=== PATIENT | female | born 1935 | race Caucasian/White ===

== ENCOUNTER 2021-07-26 14:31 | Inpatient (IN) ==
[2021-07-26] MEDS ORDERED: D5% in Water 1,000 ML IVC PRN (16:33)
[2021-07-26] MEDS ORDERED: *HR* Dextrose 50 % in Water (Syg) 50 ML SYRINGE IVP PRN (16:33)
[2021-07-26] MEDS ORDERED: Dextrose Gel 15 GM/37.5 ML TUBE PO PRN ×2 (16:33)
[2021-07-27] MEDS: *HR* LORazepam 1 MG TABLET PO PRN ×2 (02:02→20:51)
[2021-07-27] MEDS: *HR* Enoxaparin 40 MG/0.4 ML SYRINGE SQ SCH (06:51)
[2021-07-27 10:08] LABS: Basophils # 0.1 K/mcL (0.0-0.2); Basophils % 0.8 %; Eosinophils # 0.2 K/mcL (0.0-0.6); Eosinophils % 3.8 %; Hematocrit 27.9 % (35.3-44.9); Immature Granulocytes % 1.1 % (0-4); Lymphocytes % 15.6 %; Mean Corpuscular HGB Conc 32.3 g/dL (31.6-35.5); Mean Corpuscular Hemoglobin 31.6 pg (28.0-33.3); Mean Corpuscular Volume 97.9 fL (83.0-100.0); Mean Platelet Volume 10.2 fL (9.4-12.4); Monocytes # 0.7 K/mcL (0.0-1.3); Monocytes % 10.3 %; Neutrophils # 4.4 K/mcL (1.6-8.9); Platelet Count 240 K/mcL (140-400); Red Blood Count 2.85 M/mcL (3.82-4.97); Red Cell Distribution Width 15.5 % (11.5-14.5); Segmented Neutrophils % 68.4 %; White Blood Count 6.4 K/mcL (4.3-11.1)
[2021-07-27 10:18] LABS: BUN/Creatinine Ratio 21 (6-26); Blood Urea Nitrogen 19 mg/dL (8-23); Calcium 8.5 mg/dL (8.6-10.3); Carbon Dioxide 27 mEq/L (23-29); Chloride 104 mEq/L (98-107); Glucose 95 mg/dL (70-105); Osmolality,Calculated 286 (280-300); Potassium 4.3 mEq/L (3.5-5.1); Sodium 137 mEq/L (136-145); eGFR For African Americans > 60 (> 60); eGFR For Non-African Americans 60 (> 60)
[2021-07-27] MEDS: Cholecalciferol (D-3) 1,000 UNIT (25MCG) TABLET PO SCH (10:47)
[2021-07-27] MEDS: Multivit/Ca/Min/Fe/FA 1 TAB TABLET PO SCH (10:47)
[2021-07-27] MEDS: amLODIPine 5 MG TABLET PO SCH (10:47)
[2021-07-27] MEDS: *HR* Metformin 500 MG TABLET PO SCH (10:47)
[2021-07-27] MEDS: Aspirin 81 MG TAB.CHEW PO SCH (10:47)
[2021-07-27] MEDS: Metoprolol XL (24 HR) Succ 25 MG TAB.ER.24H PO SCH (10:47)
[2021-07-27] MEDS ORDERED: Fluconazole 100 MG TABLET PO SCH (21:30)
[2021-07-28] MEDS: Nystatin Cream 15 GM TUBE TP SCH ×3 (00:22→20:04)
[2021-07-28] MEDS: *HR* Enoxaparin 40 MG/0.4 ML SYRINGE SQ SCH (08:32)
[2021-07-28] MEDS: *HR* LORazepam 1 MG TABLET PO PRN (08:33)
[2021-07-28] MEDS: Multivit/Ca/Min/Fe/FA 1 TAB TABLET PO SCH (08:33)
[2021-07-28] MEDS: Metoprolol XL (24 HR) Succ 25 MG TAB.ER.24H PO SCH (08:33)
[2021-07-28] MEDS: Aspirin 81 MG TAB.CHEW PO SCH (08:33)
[2021-07-28] MEDS: Cholecalciferol (D-3) 1,000 UNIT (25MCG) TABLET PO SCH (08:33)
[2021-07-28] MEDS: *HR* Metformin 500 MG TABLET PO SCH (08:33)
[2021-07-28] MEDS: amLODIPine 5 MG TABLET PO SCH (08:33)
[2021-07-29] MEDS: *HR* LORazepam 1 MG TABLET PO PRN (03:35)
[2021-07-29] MEDS: *HR* Enoxaparin 30 MG/0.3 ML SYRINGE SQ SCH (06:08)
[2021-07-29] MEDS: Cholecalciferol (D-3) 1,000 UNIT (25MCG) TABLET PO SCH (08:40)
[2021-07-29] MEDS: amLODIPine 5 MG TABLET PO SCH (08:41)
[2021-07-29] MEDS: Metoprolol XL (24 HR) Succ 25 MG TAB.ER.24H PO SCH (08:41)
[2021-07-29] MEDS: Multivit/Ca/Min/Fe/FA 1 TAB TABLET PO SCH (08:41)
[2021-07-29] MEDS: *HR* Metformin 500 MG TABLET PO SCH (08:41)
[2021-07-29] MEDS: Aspirin 81 MG TAB.CHEW PO SCH (08:41)
[2021-07-29] MEDS: Nystatin Cream 15 GM TUBE TP SCH ×2 (08:44→20:16)
[2021-07-29] MEDS: Acetaminophen 325 MG TABLET PO PRN (22:35)
[2021-07-30] MEDS: *HR* Enoxaparin 30 MG/0.3 ML SYRINGE SQ SCH (06:20)
[2021-07-30] MEDS: Acetaminophen 325 MG TABLET PO PRN ×2 (08:27→20:44)
[2021-07-30] MEDS: Aspirin 81 MG TAB.CHEW PO SCH (08:27)
[2021-07-30] MEDS: Multivit/Ca/Min/Fe/FA 1 TAB TABLET PO SCH (08:27)
[2021-07-30] MEDS: amLODIPine 5 MG TABLET PO SCH (08:27)
[2021-07-30] MEDS: *HR* Metformin 500 MG TABLET PO SCH (08:27)
[2021-07-30] MEDS: Cholecalciferol (D-3) 1,000 UNIT (25MCG) TABLET PO SCH (08:27)
[2021-07-30] MEDS: Nystatin Cream 15 GM TUBE TP SCH ×2 (08:29→20:00)
[2021-07-30] MEDS: Metoprolol XL (24 HR) Succ 25 MG TAB.ER.24H PO SCH (08:38)
[2021-07-31] MEDS: Acetaminophen 325 MG TABLET PO PRN ×2 (03:17→19:52)
[2021-07-31] MEDS: *HR* Enoxaparin 30 MG/0.3 ML SYRINGE SQ SCH (08:26)
[2021-07-31] MEDS: Aspirin 81 MG TAB.CHEW PO SCH (08:27)
[2021-07-31] MEDS: Metoprolol XL (24 HR) Succ 25 MG TAB.ER.24H PO SCH ×2 (08:27→08:30)
[2021-07-31] MEDS: Multivit/Ca/Min/Fe/FA 1 TAB TABLET PO SCH (08:27)
[2021-07-31] MEDS: *HR* Metformin 500 MG TABLET PO SCH (08:27)
[2021-07-31] MEDS: Nystatin Cream 15 GM TUBE TP SCH ×2 (08:27→20:49)
[2021-07-31] MEDS: amLODIPine 5 MG TABLET PO SCH (08:27)
[2021-07-31] MEDS: Cholecalciferol (D-3) 1,000 UNIT (25MCG) TABLET PO SCH (08:27)
[2021-08-01] MEDS: Aspirin 81 MG TAB.CHEW PO SCH (08:17)
[2021-08-01] MEDS: *HR* Enoxaparin 30 MG/0.3 ML SYRINGE SQ SCH (08:17)
[2021-08-01] MEDS: *HR* Metformin 500 MG TABLET PO SCH (08:17)
[2021-08-01] MEDS: Cholecalciferol (D-3) 1,000 UNIT (25MCG) TABLET PO SCH (08:17)
[2021-08-01] MEDS: Metoprolol XL (24 HR) Succ 25 MG TAB.ER.24H PO SCH (08:17)
[2021-08-01] MEDS: amLODIPine 5 MG TABLET PO SCH (08:17)
[2021-08-01] MEDS: Multivit/Ca/Min/Fe/FA 1 TAB TABLET PO SCH (08:17)
[2021-08-01] MEDS: Nystatin Cream 15 GM TUBE TP SCH ×2 (08:18→20:53)
[2021-08-01] MEDS: Acetaminophen 325 MG TABLET PO PRN (20:52)
[2021-08-02] MEDS: *HR* Enoxaparin 30 MG/0.3 ML SYRINGE SQ SCH (06:10)
[2021-08-02] MEDS: amLODIPine 5 MG TABLET PO SCH (08:32)
[2021-08-02] MEDS: Aspirin 81 MG TAB.CHEW PO SCH (08:32)
[2021-08-02] MEDS: Metoprolol XL (24 HR) Succ 25 MG TAB.ER.24H PO SCH (08:32)
[2021-08-02] MEDS: Multivit/Ca/Min/Fe/FA 1 TAB TABLET PO SCH (08:32)
[2021-08-02] MEDS: *HR* Metformin 500 MG TABLET PO SCH (08:32)
[2021-08-02] MEDS: Nystatin Cream 15 GM TUBE TP SCH ×2 (08:33→20:03)
[2021-08-02] MEDS: Cholecalciferol (D-3) 1,000 UNIT (25MCG) TABLET PO SCH (08:33)
[2021-08-02 12:32] LABS: Basophils # 0.1 K/mcL (0.0-0.2); Basophils % 0.7 %; Eosinophils # 0.1 K/mcL (0.0-0.6); Eosinophils % 1.2 %; Hematocrit 31.9 % (35.3-44.9); Hemoglobin 9.9 g/dL (11.5-15.4); Immature Granulocytes % 0.3 % (0-4); Lymphocytes # 0.8 K/mcL (0.6-4.6); Lymphocytes % 8.5 %; Mean Corpuscular Hemoglobin 31.2 pg (28.0-33.3); Mean Corpuscular Volume 100.6 fL (83.0-100.0); Mean Platelet Volume 9.2 fL (9.4-12.4); Monocytes # 0.8 K/mcL (0.0-1.3); Neutrophils # 7.3 K/mcL (1.6-8.9); Platelet Count 227 K/mcL (140-400); Red Blood Count 3.17 M/mcL (3.82-4.97); Red Cell Distribution Width 17.8 % (11.5-14.5); Segmented Neutrophils % 80.3 %; White Blood Count 9.1 K/mcL (4.3-11.1)
[2021-08-02 12:46] LABS: BUN/Creatinine Ratio 28 (6-26); Blood Urea Nitrogen 28 mg/dL (8-23); Calcium 8.9 mg/dL (8.6-10.3); Carbon Dioxide 26 mEq/L (23-29); Chloride 104 mEq/L (98-107); Glucose 108 mg/dL (70-105); Magnesium 1.9 mg/dL (1.6-2.6); Osmolality,Calculated 290 (280-300); Potassium 4.7 mEq/L (3.5-5.1); Sodium 137 mEq/L (136-145); eGFR For African Americans > 60 (> 60); eGFR For Non-African Americans 52 (> 60)
[2021-08-02] MEDS: Acetaminophen 325 MG TABLET PO PRN (20:02)
[2021-08-03] MEDS: *HR* Enoxaparin 30 MG/0.3 ML SYRINGE SQ SCH (06:38)
[2021-08-03] MEDS: *HR* Metformin 500 MG TABLET PO SCH (08:17)
[2021-08-03] MEDS: Aspirin 81 MG TAB.CHEW PO SCH (08:17)
[2021-08-03] MEDS: amLODIPine 5 MG TABLET PO SCH (08:18)
[2021-08-03] MEDS: Multivit/Ca/Min/Fe/FA 1 TAB TABLET PO SCH (08:18)
[2021-08-03] MEDS: Nystatin Cream 15 GM TUBE TP SCH ×2 (08:18→20:11)
[2021-08-03] MEDS: Cholecalciferol (D-3) 1,000 UNIT (25MCG) TABLET PO SCH (08:18)
[2021-08-03] MEDS: Metoprolol XL (24 HR) Succ 25 MG TAB.ER.24H PO SCH (08:25)
[2021-08-03] MEDS: Acetaminophen 325 MG TABLET PO PRN (20:11)
[2021-08-04] MEDS: *HR* Enoxaparin 30 MG/0.3 ML SYRINGE SQ SCH (06:55)
[2021-08-04] MEDS: Aspirin 81 MG TAB.CHEW PO SCH (09:03)
[2021-08-04] MEDS: Multivit/Ca/Min/Fe/FA 1 TAB TABLET PO SCH (09:03)
[2021-08-04] MEDS: Cholecalciferol (D-3) 1,000 UNIT (25MCG) TABLET PO SCH (09:04)
[2021-08-04] MEDS: Nystatin Cream 15 GM TUBE TP SCH (09:06)
[2021-08-04] MEDS: amLODIPine 5 MG TABLET PO SCH (09:11)
[2021-08-04] MEDS: *HR* Metformin 500 MG TABLET PO SCH (09:11)
[2021-08-04] MEDS: Metoprolol XL (24 HR) Succ 25 MG TAB.ER.24H PO SCH (09:12)
[2021-08-04] MEDS: Acetaminophen 325 MG TABLET PO PRN (20:44)
[2021-08-04] MEDS: Nystatin POWDER 30 GM BOTTLE TP SCH (20:45)
[2021-08-05] MEDS: Metoprolol XL (24 HR) Succ 25 MG TAB.ER.24H PO SCH (08:03)
[2021-08-05] MEDS: *HR* Metformin 500 MG TABLET PO SCH (08:03)
[2021-08-05] MEDS: Aspirin 81 MG TAB.CHEW PO SCH (08:03)
[2021-08-05] MEDS: Acetaminophen 325 MG TABLET PO PRN ×3 (08:05→20:25)
[2021-08-05] MEDS: Cholecalciferol (D-3) 1,000 UNIT (25MCG) TABLET PO SCH (08:05)
[2021-08-05] MEDS: *HR* Enoxaparin 30 MG/0.3 ML SYRINGE SQ SCH (08:05)
[2021-08-05] MEDS: Multivit/Ca/Min/Fe/FA 1 TAB TABLET PO SCH (08:05)
[2021-08-05] MEDS: amLODIPine 5 MG TABLET PO SCH (08:06)
[2021-08-05] MEDS: Nystatin POWDER 30 GM BOTTLE TP SCH ×3 (08:06→21:11)
[2021-08-06] MEDS: Cholecalciferol (D-3) 1,000 UNIT (25MCG) TABLET PO SCH (07:56)
[2021-08-06] MEDS: *HR* Metformin 500 MG TABLET PO SCH (07:56)
[2021-08-06] MEDS: *HR* Enoxaparin 30 MG/0.3 ML SYRINGE SQ SCH (07:56)
[2021-08-06] MEDS: Aspirin 81 MG TAB.CHEW PO SCH (07:56)
[2021-08-06] MEDS: Multivit/Ca/Min/Fe/FA 1 TAB TABLET PO SCH (07:56)
[2021-08-06] MEDS: amLODIPine 5 MG TABLET PO SCH (07:56)
[2021-08-06] MEDS: Metoprolol XL (24 HR) Succ 25 MG TAB.ER.24H PO SCH (07:57)
[2021-08-06] MEDS: Nystatin POWDER 30 GM BOTTLE TP SCH ×3 (07:57→21:45)
[2021-08-06] MEDS: Sennosides/Docusate Sodium TABLET PO SCH ×2 (15:56→21:45)
[2021-08-06] MEDS: Acetaminophen 325 MG TABLET PO PRN (15:56)
[2021-08-07] MEDS: *HR* Enoxaparin 30 MG/0.3 ML SYRINGE SQ SCH (06:40)
[2021-08-07] MEDS ORDERED: Fluconazole 150 MG TABLET PO ONE (08:15)
[2021-08-07] MEDS: *HR* Metformin 500 MG TABLET PO SCH (08:21)
[2021-08-07] MEDS: *HR* LORazepam 1 MG TABLET PO PRN (08:21)
[2021-08-07] MEDS: Multivit/Ca/Min/Fe/FA 1 TAB TABLET PO SCH (08:21)
[2021-08-07] MEDS: Cholecalciferol (D-3) 1,000 UNIT (25MCG) TABLET PO SCH (08:21)
[2021-08-07] MEDS: Aspirin 81 MG TAB.CHEW PO SCH (08:21)
[2021-08-07] MEDS: Sennosides/Docusate Sodium TABLET PO SCH ×2 (08:21→20:21)
[2021-08-07] MEDS: amLODIPine 5 MG TABLET PO SCH (08:21)
[2021-08-07] MEDS: Metoprolol XL (24 HR) Succ 25 MG TAB.ER.24H PO SCH (08:23)
[2021-08-07] MEDS: Nystatin POWDER 30 GM BOTTLE TP SCH ×3 (08:25→20:23)
[2021-08-08] MEDS: *HR* Enoxaparin 30 MG/0.3 ML SYRINGE SQ SCH (06:33)
[2021-08-08] MEDS: Multivit/Ca/Min/Fe/FA 1 TAB TABLET PO SCH (09:02)
[2021-08-08] MEDS: Metoprolol XL (24 HR) Succ 25 MG TAB.ER.24H PO SCH (09:03)
[2021-08-08] MEDS: *HR* Metformin 500 MG TABLET PO SCH (09:03)
[2021-08-08] MEDS: Sennosides/Docusate Sodium TABLET PO SCH ×2 (09:03→21:58)
[2021-08-08] MEDS: Aspirin 81 MG TAB.CHEW PO SCH (09:03)
[2021-08-08] MEDS: Cholecalciferol (D-3) 1,000 UNIT (25MCG) TABLET PO SCH (09:03)
[2021-08-08] MEDS: amLODIPine 5 MG TABLET PO SCH (09:03)
[2021-08-08 09:34] LABS: Bilirubin,Urine Negative (Negative); Blood,Urine Negative (Negative); Clarity,Urine Clear (Clear); Color,Urine Yellow (Yellow); Glucose,Urine (UA) Normal (Normal); Ketones,Urine Trace mg/dL (Negative); Leukocyte Esterase,Urine Negative (Negative); Nitrite,Urine Negative (Negative); PH,Urine 5.5 pH Units (5.0-8.0); Protein,Urine Negative (Neg-Trace); Urobilinogen,Urine Normal (Normal)
[2021-08-08 11:23] LABS: Basophils % 0.6 %; Eosinophils # 0.1 K/mcL (0.0-0.6); Eosinophils % 2.2 %; Hemoglobin 9.5 g/dL (11.5-15.4); Immature Granulocytes % 0.6 % (0-4); Lymphocytes % 15.7 %; Mean Corpuscular HGB Conc 31.7 g/dL (31.6-35.5); Mean Corpuscular Hemoglobin 31.1 pg (28.0-33.3); Mean Corpuscular Volume 98.4 fL (83.0-100.0); Mean Platelet Volume 8.9 fL (9.4-12.4); Monocytes # 0.7 K/mcL (0.0-1.3); Monocytes % 11.3 %; Neutrophils # 4.4 K/mcL (1.6-8.9); Platelet Count 260 K/mcL (140-400); Red Blood Count 3.05 M/mcL (3.82-4.97); Red Cell Distribution Width 17.5 % (11.5-14.5); Segmented Neutrophils % 69.6 %; White Blood Count 6.4 K/mcL (4.3-11.1)
[2021-08-08 11:28] LABS: VBG Chloride 99 mEq/L (98-107)
[2021-08-08 11:40] LABS: BUN/Creatinine Ratio 21 (6-26); Blood Urea Nitrogen 18 mg/dL (8-23); Calcium 8.5 mg/dL (8.6-10.3); Carbon Dioxide 27 mEq/L (23-29); Glucose 113 mg/dL (70-105); eGFR For African Americans > 60 (> 60); eGFR For Non-African Americans > 60 (> 60)
[2021-08-08] MEDS: Nystatin POWDER 30 GM BOTTLE TP SCH ×3 (12:05→21:58)
[2021-08-08] MEDS ORDERED: Preparation H Ointment 57 GM TUBE TP PRN (15:21)
[2021-08-08] MEDS ORDERED: Hydrocortisone Rectal 2.5% CRM 28 GM TUBE RC PRN (15:21)
[2021-08-08] MEDS ORDERED: Estrogens, Conjugated CREAM 30 GM TUBE VG ONE (15:31)
[2021-08-08] MEDS: *HR* LORazepam 1 MG TABLET PO PRN (15:54)
[2021-08-09] MEDS: *HR* LORazepam 1 MG TABLET PO PRN ×2 (01:09→03:36)
[2021-08-09] MEDS: Sennosides/Docusate Sodium TABLET PO SCH ×2 (08:09→20:16)
[2021-08-09] MEDS: Nystatin POWDER 30 GM BOTTLE TP SCH ×3 (08:10→20:16)
[2021-08-09] MEDS: amLODIPine 5 MG TABLET PO SCH (08:10)
[2021-08-09] MEDS: Aspirin 81 MG TAB.CHEW PO SCH (08:10)
[2021-08-09] MEDS: Multivit/Ca/Min/Fe/FA 1 TAB TABLET PO SCH (08:10)
[2021-08-09] MEDS: *HR* Metformin 500 MG TABLET PO SCH (08:11)
[2021-08-09] MEDS: Cholecalciferol (D-3) 1,000 UNIT (25MCG) TABLET PO SCH (08:11)
[2021-08-09] MEDS: *HR* Enoxaparin 30 MG/0.3 ML SYRINGE SQ SCH (08:12)
[2021-08-09] MEDS: Metoprolol XL (24 HR) Succ 25 MG TAB.ER.24H PO SCH (08:15)
[2021-08-09] MEDS: Acetaminophen 325 MG TABLET PO PRN (20:16)
[2021-08-10] MEDS: Acetaminophen 325 MG TABLET PO PRN ×2 (04:29→21:20)
[2021-08-10] MEDS: *HR* Enoxaparin 30 MG/0.3 ML SYRINGE SQ SCH (07:28)
[2021-08-10] MEDS: Sennosides/Docusate Sodium TABLET PO SCH ×2 (07:28→21:20)
[2021-08-10] MEDS: Multivit/Ca/Min/Fe/FA 1 TAB TABLET PO SCH (07:28)
[2021-08-10] MEDS: *HR* Metformin 500 MG TABLET PO SCH (07:29)
[2021-08-10] MEDS: Aspirin 81 MG TAB.CHEW PO SCH (07:29)
[2021-08-10] MEDS: Metoprolol XL (24 HR) Succ 25 MG TAB.ER.24H PO SCH (07:29)
[2021-08-10] MEDS: Cholecalciferol (D-3) 1,000 UNIT (25MCG) TABLET PO SCH (07:29)
[2021-08-10] MEDS: amLODIPine 5 MG TABLET PO SCH (07:29)
[2021-08-10] MEDS: Nystatin POWDER 30 GM BOTTLE TP SCH ×3 (07:30→21:23)
[2021-08-11] MEDS: Acetaminophen 325 MG TABLET PO PRN ×2 (09:03→21:17)
[2021-08-11] MEDS: Aspirin 81 MG TAB.CHEW PO SCH (09:03)
[2021-08-11] MEDS: Multivit/Ca/Min/Fe/FA 1 TAB TABLET PO SCH (09:03)
[2021-08-11] MEDS: Cholecalciferol (D-3) 1,000 UNIT (25MCG) TABLET PO SCH (09:03)
[2021-08-11] MEDS: Sennosides/Docusate Sodium TABLET PO SCH ×2 (09:03→21:15)
[2021-08-11] MEDS: amLODIPine 5 MG TABLET PO SCH (09:04)
[2021-08-11] MEDS: *HR* Metformin 500 MG TABLET PO SCH (09:04)
[2021-08-11] MEDS: *HR* Enoxaparin 30 MG/0.3 ML SYRINGE SQ SCH (09:05)
[2021-08-11] MEDS: Metoprolol XL (24 HR) Succ 25 MG TAB.ER.24H PO SCH (09:06)
[2021-08-11] MEDS: Nystatin POWDER 30 GM BOTTLE TP SCH ×3 (09:06→21:15)
[2021-08-12] MEDS: *HR* Enoxaparin 30 MG/0.3 ML SYRINGE SQ SCH (06:30)
[2021-08-12] MEDS: *HR* Metformin 500 MG TABLET PO SCH (09:42)
[2021-08-12] MEDS: Aspirin 81 MG TAB.CHEW PO SCH (09:42)
[2021-08-12] MEDS: Multivit/Ca/Min/Fe/FA 1 TAB TABLET PO SCH (09:43)
[2021-08-12] MEDS: amLODIPine 5 MG TABLET PO SCH (09:44)
[2021-08-12] MEDS: Metoprolol XL (24 HR) Succ 25 MG TAB.ER.24H PO SCH (09:45)
[2021-08-12] MEDS: Sennosides/Docusate Sodium TABLET PO SCH ×2 (09:45→21:03)
[2021-08-12] MEDS: Cholecalciferol (D-3) 1,000 UNIT (25MCG) TABLET PO SCH (09:45)
[2021-08-12] MEDS: Nystatin POWDER 30 GM BOTTLE TP SCH ×3 (09:46→21:04)
[2021-08-12] MEDS: Acetaminophen 325 MG TABLET PO PRN (21:07)
[2021-08-13] MEDS: *HR* Enoxaparin 30 MG/0.3 ML SYRINGE SQ SCH (06:48)
[2021-08-13] MEDS: Multivit/Ca/Min/Fe/FA 1 TAB TABLET PO SCH (08:03)
[2021-08-13] MEDS: *HR* Metformin 500 MG TABLET PO SCH (08:04)
[2021-08-13] MEDS: Aspirin 81 MG TAB.CHEW PO SCH (08:05)
[2021-08-13] MEDS: Sennosides/Docusate Sodium TABLET PO SCH ×2 (08:05→19:52)
[2021-08-13] MEDS: amLODIPine 5 MG TABLET PO SCH (08:06)
[2021-08-13] MEDS: Cholecalciferol (D-3) 1,000 UNIT (25MCG) TABLET PO SCH (08:07)
[2021-08-13] MEDS: Metoprolol XL (24 HR) Succ 25 MG TAB.ER.24H PO SCH (08:07)
[2021-08-13] MEDS: Nystatin POWDER 30 GM BOTTLE TP SCH ×3 (08:08→19:53)
[2021-08-13] MEDS: Acetaminophen 325 MG TABLET PO PRN (18:24)
[2021-08-14] MEDS: *HR* Enoxaparin 30 MG/0.3 ML SYRINGE SQ SCH (05:07)
[2021-08-14] MEDS: Sennosides/Docusate Sodium TABLET PO SCH ×2 (07:35→19:55)
[2021-08-14] MEDS: *HR* Metformin 500 MG TABLET PO SCH (07:36)
[2021-08-14] MEDS: Cholecalciferol (D-3) 1,000 UNIT (25MCG) TABLET PO SCH (07:36)
[2021-08-14] MEDS: Aspirin 81 MG TAB.CHEW PO SCH (07:36)
[2021-08-14] MEDS: amLODIPine 5 MG TABLET PO SCH (07:37)
[2021-08-14] MEDS: Multivit/Ca/Min/Fe/FA 1 TAB TABLET PO SCH (07:38)
[2021-08-14] MEDS: Metoprolol XL (24 HR) Succ 25 MG TAB.ER.24H PO SCH (07:38)
[2021-08-14] MEDS: Nystatin POWDER 30 GM BOTTLE TP SCH ×3 (07:40→19:56)
[2021-08-14] MEDS: Acetaminophen 325 MG TABLET PO PRN ×2 (13:41→19:55)
[2021-08-14] MEDS: Nystatin Cream 15 GM TUBE TP SCH (20:49)
[2021-08-15] MEDS: *HR* Enoxaparin 30 MG/0.3 ML SYRINGE SQ SCH (05:58)
[2021-08-15 08:21] LABS: Hematocrit 32.6 % (35.3-44.9); Hemoglobin 10.4 g/dL (11.5-15.4); Mean Corpuscular HGB Conc 31.9 g/dL (31.6-35.5); Mean Corpuscular Hemoglobin 31.3 pg (28.0-33.3); Mean Corpuscular Volume 98.2 fL (83.0-100.0); Mean Platelet Volume 8.8 fL (9.4-12.4); Platelet Count 237 K/mcL (140-400); Red Blood Count 3.32 M/mcL (3.82-4.97); Red Cell Distribution Width 16.2 % (11.5-14.5); White Blood Count 5.7 K/mcL (4.3-11.1)
[2021-08-15] MEDS: Sennosides/Docusate Sodium TABLET PO SCH ×2 (08:32→21:06)
[2021-08-15] MEDS: Aspirin 81 MG TAB.CHEW PO SCH (08:33)
[2021-08-15] MEDS: amLODIPine 5 MG TABLET PO SCH (08:33)
[2021-08-15] MEDS: *HR* Metformin 500 MG TABLET PO SCH (08:34)
[2021-08-15] MEDS: Multivit/Ca/Min/Fe/FA 1 TAB TABLET PO SCH (08:34)
[2021-08-15] MEDS: Cholecalciferol (D-3) 1,000 UNIT (25MCG) TABLET PO SCH (08:35)
[2021-08-15] MEDS: Metoprolol XL (24 HR) Succ 25 MG TAB.ER.24H PO SCH (08:35)
[2021-08-15] MEDS: Nystatin Cream 15 GM TUBE TP SCH ×2 (08:36→21:08)
[2021-08-15] MEDS: Nystatin POWDER 30 GM BOTTLE TP SCH ×3 (08:36→21:07)
[2021-08-15 08:42] LABS: BUN/Creatinine Ratio 17 (6-26); Blood Urea Nitrogen 12 mg/dL (8-23); Calcium 8.3 mg/dL (8.6-10.3); Carbon Dioxide 30 mEq/L (23-29); Chloride 101 mEq/L (98-107); Glucose 88 mg/dL (70-105); Osmolality,Calculated 283 (280-300); Potassium 3.8 mEq/L (3.5-5.1); Sodium 137 mEq/L (136-145); eGFR For African Americans > 60 (> 60); eGFR For Non-African Americans > 60 (> 60)
[2021-08-15] MEDS: Acetaminophen 325 MG TABLET PO PRN (21:07)
[2021-08-16] MEDS: *HR* Enoxaparin 40 MG/0.4 ML SYRINGE SQ SCH (06:14)
[2021-08-16] MEDS: Multivit/Ca/Min/Fe/FA 1 TAB TABLET PO SCH (09:36)
[2021-08-16] MEDS: Sennosides/Docusate Sodium TABLET PO SCH ×2 (09:37→20:56)
[2021-08-16] MEDS: *HR* Metformin 500 MG TABLET PO SCH (09:37)
[2021-08-16] MEDS: Aspirin 81 MG TAB.CHEW PO SCH (09:37)
[2021-08-16] MEDS: Metoprolol XL (24 HR) Succ 25 MG TAB.ER.24H PO SCH (09:37)
[2021-08-16] MEDS: Cholecalciferol (D-3) 1,000 UNIT (25MCG) TABLET PO SCH (09:38)
[2021-08-16] MEDS: Nystatin POWDER 30 GM BOTTLE TP SCH ×3 (09:39→20:58)
[2021-08-16] MEDS: Nystatin Cream 15 GM TUBE TP SCH ×2 (09:39→20:57)
[2021-08-16] MEDS: amLODIPine 5 MG TABLET PO SCH (11:43)
[2021-08-16] MEDS: Acetaminophen 325 MG TABLET PO PRN (18:23)
[2021-08-17] MEDS: *HR* Enoxaparin 40 MG/0.4 ML SYRINGE SQ SCH (06:11)
[2021-08-17 06:33] VITALS: BP 120/67; PULSE 62; RESP 19; TEMP 98.6; O2SAT 97
[2021-08-17] MEDS: Multivit/Ca/Min/Fe/FA 1 TAB TABLET PO SCH (08:10)
[2021-08-17] MEDS: Sennosides/Docusate Sodium TABLET PO SCH (08:11)
[2021-08-17] MEDS: *HR* Metformin 500 MG TABLET PO SCH (08:12)
[2021-08-17] MEDS: Cholecalciferol (D-3) 1,000 UNIT (25MCG) TABLET PO SCH (08:12)
[2021-08-17] MEDS: Aspirin 81 MG TAB.CHEW PO SCH (08:12)
[2021-08-17] MEDS: amLODIPine 5 MG TABLET PO SCH (08:12)
[2021-08-17] MEDS: Metoprolol XL (24 HR) Succ 25 MG TAB.ER.24H PO SCH (08:12)
[2021-08-17] MEDS: Nystatin Cream 15 GM TUBE TP SCH (08:13)
[2021-08-17] MEDS: Nystatin POWDER 30 GM BOTTLE TP SCH (08:13)
== END 2021-08-17 17:31 | disposition home health service (06) | DRG 177 ==
LOC: INPPIK 22:04
PROVIDERS: ADMIT Internal Medicine; ATTEND Internal Medicine